=== PATIENT | female | born 2000 | race Caucasian/White ===

== ENCOUNTER 2025-03-12 16:35 | Inpatient (IN) | payer MEDICAID ==
[~2025-03-12] VITALS: Ht 170.2 cm; Wt 69.7 kg
[2025-03-12 18:01] LABS: PLATELET COUNT (AUTO) 379 K/uL (150-450); RED BLOOD CELL COUNT(AUTO) 4.48 MIL/uL (4.00-5.20); RED CELL DISTRIBUTION WIDTH 12.7 % (11.5-14.5); WHITE BLOOD COUNT (AUTO) 8.6 K/uL (4.5-11.0)
[2025-03-12 18:08] LABS: CALCIUM, TOTAL 8.9 mg/dL (8.8-10.5); CREATININE 0.58 mg/dL (0.60-1.30); GLOMERULAR FILTR. RATE CALC > 60 mL/min (>60); GLUCOSE,RANDOM 118 mg/dL (70-110); SODIUM SERUM 139 mmol/L (136-145); UREA NITROGEN, BLOOD 8 mg/dL (7-18)
[2025-03-12 18:29] LABS: APPEARANCE,URINE CLEAR (CLEAR); GLUCOSE, URINE (UA) NEGATIVE (NEGATIVE); LEUKOCYTE ESTERASE ,URINE TRACE (NEGATIVE); NITRATE,URINE NEGATIVE (NEGATIVE); OCCULT BLOOD,URINE NEGATIVE (NEGATIVE); SPECIFIC GRAVITIY, URINE 1.010 (1.003-1.030)
[2025-03-12] MEDS ORDERED: ZOLPIDEM TARTRATE 10 MG TABLET PO PRN (18:30)
[2025-03-12 18:36] LABS: COVID AG,FIA SOURCE NASAL SWAB
[2025-03-12] MEDS: OLANZapine 5 MG RAPDIS TABLET PO ONE (18:38)
[2025-03-12 18:44] LABS: SQUAMOUS EPITHELIAL CELL,UR Rare /LPF (None Seen)
[2025-03-12 18:57] LABS: SARS-COV2 (COVID) ANTIGEN,FIA Negative (Negative)
[2025-03-12] MEDS: POTASSIUM CHLORIDE 20 MEQ ER TABLET PO ONE (19:33)
[2025-03-12 21:47] VITALS: O2SAT 97
[2025-03-12] MEDS: ONDANSETRON 4 MG TABLET PO ONE (22:02)
[2025-03-12] MEDS: ACETAMINOPHEN 500 MG TABLET PO ONE (22:10)
[2025-03-13 02:08] VITALS: BP 101/64; PULSE 83; RESP 18; TEMP 98.5; O2SAT 100
[2025-03-13] MEDS: INFLUENZA VIRUS VACCINE TVS (6MO+) 2025-26/PF 45 MCG/0.5 ML SYRINGE IM. ONE (02:15)
[2025-03-13] MEDS ORDERED: BACITRACIN 28 GM OINTMENT TP PRN (07:00)
[2025-03-13] MEDS ORDERED: PETROLATUM,WHITE 28 GM JELLY TP PRN (07:00)
[2025-03-13] MEDS ORDERED: IBUPROFEN 600 MG TABLET PO PRN (07:00)
[2025-03-13] MEDS ORDERED: MAGNESIUM HYDROXIDE SUSPENSION 30 ML UDCUP PO PRN (07:00)
[2025-03-13] MEDS ORDERED: BENZOCAINE/MENTHOL [CEPACOL] LOZENGE PO PRN (07:00)
[2025-03-13] MEDS ORDERED: DOCUSATE SODIUM 100 MG CAPSULE PO PRN (07:00)
[2025-03-13] MEDS ORDERED: OMEPRAZOLE 20 MG CAPSULE PO PRN (07:00)
[2025-03-13] MEDS ORDERED: ALBUTEROL SULFATE HFA 90 MCG/PUFF 8 GM INHALER IH PRN (07:00)
[2025-03-13] MEDS ORDERED: LOPERAMIDE HCL 2 MG CAPSULE PO PRN (07:00)
[2025-03-13] MEDS: ACETAMINOPHEN 325 MG TABLET PO PRN (07:15)
[2025-03-13] MEDS: ONDANSETRON 4 MG TABLET PO PRN (07:15)
[2025-03-13 07:17] VITALS: RESP 18
[2025-03-13 08:22] VITALS: BP 121/74; PULSE 89; RESP 16; TEMP 98.9; O2SAT 99
[2025-03-13 09:48] LABS: CHOL/HDL RATIO 2.4 (3.9-5.7)
[2025-03-13 10:19] LABS: LDL CHOL (CALC.) 85 mg/dL (0-130)
[2025-03-13 11:40] LABS: ASPARTATE AMINOTRANSFERASE 21 U/L (15-37); CALCIUM, TOTAL 8.9 mg/dL (8.8-10.5); CREATININE 0.60 mg/dL (0.60-1.30); GLOMERULAR FILTR. RATE CALC > 60 mL/min (>60); GLUCOSE,RANDOM 87 mg/dL (70-110); SODIUM SERUM 138 mmol/L (136-145); TOTAL PROTEIN, SERUM 7.1 g/dL (6.4-8.2); UREA NITROGEN, BLOOD 15 mg/dL (7-18)
[2025-03-13] MEDS: ESCITALOPRAM OXALATE 10 MG TABLET PO SCH (17:17)
[2025-03-13 20:15] VITALS: BP 117/82; PULSE 88; RESP 17; TEMP 97.7; O2SAT 98
[2025-03-14 08:16] VITALS: BP 175/135; PULSE 75; RESP 16; TEMP 97.9; O2SAT 96
[2025-03-14 09:40] VITALS: BP 98/54; PULSE 69; RESP 16
[2025-03-14] MEDS: NICOTINE 21 MG/24 HOUR PATCH TD PRN (17:56)
[2025-03-14 20:17] VITALS: BP 105/63; PULSE 60; RESP 17; TEMP 98.4; O2SAT 100
[2025-03-14] MEDS: LITHIUM CARBONATE 300 MG CAPSULE PO SCH (21:00)
[2025-03-14] MEDS: DIVALPROEX SODIUM 500 MG DR TABLET PO SCH (21:18)
[2025-03-15 08:14] VITALS: BP 88/47; PULSE 100; RESP 16; TEMP 98.2; O2SAT 100
[2025-03-15] MEDS: MAG HYDROX/ALUMINUM HYD/SIMETH ES 30 ML SUSPENSION UDCUP PO PRN (12:43)
[2025-03-15 20:52] VITALS: BP 101/71; PULSE 86; RESP 17; TEMP 97.3; O2SAT 100
[2025-03-16 08:07] VITALS: BP 112/68; PULSE 93; RESP 17; TEMP 97.9; O2SAT 97
[2025-03-16 20:14] VITALS: BP 101/70; PULSE 79; RESP 17; TEMP 98.4; O2SAT 100
[2025-03-17 08:44] VITALS: BP 97/62; PULSE 77; RESP 17; TEMP 97.1; O2SAT 99
[2025-03-17 20:10] VITALS: BP 111/67; PULSE 72; RESP 18; TEMP 97.9; O2SAT 100
[2025-03-18 08:25] VITALS: BP 96/59; PULSE 82; RESP 16; TEMP 97.3; O2SAT 99
[2025-03-18 20:10] VITALS: RESP 17
[2025-03-19 08:04] VITALS: BP 100/64; PULSE 88; RESP 17; TEMP 98.1
[2025-03-19 09:01] LABS: VALPROIC ACID 73 mcg/mL (50-100)
[2025-03-19 20:12] VITALS: BP 105/69; PULSE 66; RESP 17; TEMP 97.5; O2SAT 100
[2025-03-20 08:12] VITALS: BP 114/66; PULSE 71; RESP 18; TEMP 97.5; O2SAT 99
[2025-03-20 20:08] VITALS: BP 114/67; PULSE 80; RESP 17; TEMP 97.9; O2SAT 99
[2025-03-21 07:59] VITALS: BP 106/67; PULSE 78; RESP 17; TEMP 98.4; O2SAT 100
[2025-03-21 08:45] VITALS: BP 106/67; PULSE 78; RESP 17; TEMP 98.4; O2SAT 100
[2025-03-21 14:20] VITALS: BP 99/79; PULSE 61; RESP 17; TEMP 97.3; O2SAT 100
[2025-03-22 08:10] VITALS: BP 100/67; PULSE 77; RESP 16; TEMP 98.1; O2SAT 97
[2025-03-22] MEDS ORDERED: DIVA-112 PO (08:41)
[2025-03-22] MEDS ORDERED: LITH300C3 PO (08:44)
[2025-03-22] MEDS ORDERED: ESCI-8 PO (08:54)
[2025-03-22] MEDS ORDERED: RISP0.5T39 PO (09:18)
== END 2025-03-22 10:27 | disposition home or self-care (01) | DRG 753 ==
LOC: EMS 16:43 → B3A 23:00
PROVIDERS: ADMIT Psychiatry & Neurology Psychiatry; ATTEND Psychiatry & Neurology Psychiatry
DX: F31.9 Bipolar disorder, unspecified (principal); F20.0 Paranoid schizophrenia; F10.10 Alcohol abuse, uncomplicated; E87.6 Hypokalemia; G47.00 Insomnia, unspecified; K59.00 Constipation, unspecified; M54.50 Low back pain, unspecified; Z20.822 Contact with and (suspected) exposure to COVID-19; Z79.899 Other long term (current) drug therapy
CPT/HCPCS: 80048; 80053; 80061; 80164; 80178; 81001; 83036; 84703; 85025; 99285; G0480; Q0162